=== PATIENT | female | born 1960 | race Caucasian/White ===

== ENCOUNTER → 2023-06-22 12:16 | Outpatient (REF) | payer OTHER, SELFPAY | LOC: HWRAD 12:16 | PROVIDERS: ATTENDING PHYSICIAN Physician Assistant Medical | DX: Z12.31 Encounter for screening mammogram for malignant neoplasm of breast (principal); M81.0 Age-related osteoporosis without current pathological fracture | CPT/HCPCS: 77063; 77067; 77080 ==

== ENCOUNTER → 2023-07-07 19:29 | Outpatient (REF) | payer OTHER, SELFPAY | LOC: MRI 19:29 | PROVIDERS: ATTENDING PHYSICIAN Internal Medicine; FAMILY PHYSICIAN Physician Assistant Medical | DX: C69.32 Malignant neoplasm of left choroid (principal) | CPT/HCPCS: 74183; A9581 ==

== ENCOUNTER → 2023-07-10 06:24 | Day surgery (SDC) | payer OTHER, SELFPAY | LOC: GI 06:24 | PROVIDERS: ATTENDING PHYSICIAN Internal Medicine | DX: Z12.11 Encounter for screening for malignant neoplasm of colon (principal); D12.3 Benign neoplasm of transverse colon; Z86.010 Personal history of colon polyps | CPT/HCPCS: 45385; 88305 ==

== ENCOUNTER → 2023-08-08 11:14 | Outpatient (REF) | payer OTHER, SELFPAY | LOC: RAD 11:14 | PROVIDERS: ATTENDING PHYSICIAN Urology; FAMILY PHYSICIAN Physician Assistant Medical | DX: R31.0 Gross hematuria (principal) | CPT/HCPCS: 74178; Q9967 ==

== ENCOUNTER 2023-08-31 06:23 | Day surgery (SDC) | payer OTHER, SELFPAY ==
[2023-08-23 10:05] VITALS: BMI 19.6
[2023-08-23 10:18] LABS: Urine Albumin Negative (Neg - Trace); Urine Bilirubin Negative (Negative); Urine Character Clear (Clear); Urine Color Yellow; Urine Glucose Negative (Negative); Urine Ketone Negative (Negative); Urine Leukocyte Negative (Negative); Urine Nitrite Negative (Negative); Urine Occult Blood Negative (Negative); Urine Specific Gravity 1.005 (<1.030); Urine Urobilinogen Negative (Neg - 1+)
[2023-08-23 10:24] LABS: Hematocrit 42.7 % (37.0-47.0); Hemoglobin 14.7 g/dL (12.0-16.0); Mean Corp Hgb Conc. 34.4 g/dL (33.0-37.0); Mean Corpuscular Hgb 33.4 pg (27.0-31.0); Mean Platelet Volume 9.8 fL (7.4-10.4); Platelet Count 222 10^3/uL (130-400); Red Cell Dist. Width 11.9 % (11.5-14.5); White Blood Cell Count 5.1 10^3/uL (4.8-10.8)
[2023-08-23 10:30] LABS: PT 13.2 Sec (11.4-14.6)
[2023-08-23 10:31] LABS: APTT 24.7 Sec (23.4-35.0)
[2023-08-23 11:24] LABS: Blood Urea Nitrogen 17 mg/dl (7-17); Calcium 9.3 mg/dl (8.4-10.2); Carbon Dioxide 29 mmol/L (22-30); Chloride 104 mmol/L (98-107); Estimated Creatinine Clearance 73 ml/min; Glucose 90 mg/dl (70-99); Potassium 4.7 mmol/L (3.5-5.1); Sodium 138 mmol/L (135-145); eGFR > 60.00
[2023-08-31] VITALS (12 sets, daily range): BP systolic 124–168; BP diastolic 82–95; BMI 19.6
[2023-08-31] MEDS: CYSVIEW KIT 100 MG INTRAVES (07:59)
[2023-08-31] MEDS: NORMOSOL-R 1000 IV (08:05)
[2023-08-31] MEDS: SYRINGE NON-PUMP 50 MG IRRIG (10:23)
[2023-08-31] MEDS: SYRINGE NON-PUMP 50 ML IRRIG (10:23)
[2023-08-31] MEDS: Pyridium 200 MG PO (10:31)
--- NOTE | 2023-08-31 10:33 | PTCARENOTE ---
Dr. Morales at bedside instilling chemo, walsh catheter elevated, pt. tolerated procedure without difficulty.
--- NOTE | 2023-08-31 11:27 | PTCARENOTE ---
walsh catheter placed to gravity.
== END 2023-08-31 12:30 | disposition home or self-care (01) ==
LOC: SDS 06:23
PROVIDERS: ATTENDING PHYSICIAN Urology; FAMILY PHYSICIAN Physician Assistant Medical; OTHER PHYSICIAN Internal Medicine
DX: C67.9 Malignant neoplasm of bladder, unspecified (principal)
CPT/HCPCS: 52234; C9738; 88307; 36415; 80048; 81003; 85027; 85610; 85730; 93005; A9589; J9201

== ENCOUNTER 2024-01-30 06:53 | Outpatient (RCR) | payer OTHER, MEDICARE, SELFPAY | END 2024-01-30 23:59 | disposition home or self-care (01) | LOC: RPT 06:53 | PROVIDERS: ATTENDING PHYSICIAN Urology | DX: R35.0 Frequency of micturition (principal); M62.89 Other specified disorders of muscle; N39.41 Urge incontinence; R27.8 Other lack of coordination; M62.838 Other muscle spasm; Z73.6 Limitation of activities due to disability | CPT/HCPCS: 97014; 97112; 97140; 97163; 97530 ==

== ENCOUNTER 2024-03-04 16:09 | Outpatient (RCR) | payer OTHER, MEDICARE, SELFPAY | END 2024-03-04 23:59 | disposition home or self-care (01) | LOC: RPT 16:09 | PROVIDERS: ATTENDING PHYSICIAN Urology | DX: R35.0 Frequency of micturition (principal); M62.89 Other specified disorders of muscle; N39.41 Urge incontinence; R27.8 Other lack of coordination; M62.838 Other muscle spasm; Z73.6 Limitation of activities due to disability | CPT/HCPCS: 97110; 97530 ==

== ENCOUNTER → 2024-04-02 18:31 | Outpatient (REF) | payer OTHER, MEDICARE, SELFPAY | LOC: MRI 18:31 | PROVIDERS: ATTENDING PHYSICIAN Internal Medicine; FAMILY PHYSICIAN Family Medicine | DX: C69.32 Malignant neoplasm of left choroid (principal) | CPT/HCPCS: 71046; 74183; A9581 ==

== ENCOUNTER 2024-04-04 06:34 | Outpatient (RCR) | payer OTHER, MEDICARE, SELFPAY | END 2024-04-04 23:59 | disposition home or self-care (01) | LOC: RPT 06:34 | PROVIDERS: ATTENDING PHYSICIAN Urology | DX: R35.0 Frequency of micturition (principal); M62.81 Muscle weakness (generalized); M62.89 Other specified disorders of muscle; N39.41 Urge incontinence; R27.8 Other lack of coordination; M62.838 Other muscle spasm; Z73.6 Limitation of activities due to disability | CPT/HCPCS: 97530 ==

== ENCOUNTER 2024-05-16 06:33 | Outpatient (RCR) | payer OTHER, MEDICARE, SELFPAY | END 2024-05-16 23:59 | disposition home or self-care (01) | LOC: RPT 06:33 | PROVIDERS: ATTENDING PHYSICIAN Urology | DX: R35.0 Frequency of micturition (principal); M62.81 Muscle weakness (generalized); N39.41 Urge incontinence; R27.8 Other lack of coordination; M62.838 Other muscle spasm; Z73.6 Limitation of activities due to disability; M62.89 Other specified disorders of muscle | CPT/HCPCS: 97530 ==

== ENCOUNTER → 2025-01-30 15:09 | Outpatient (REF) | payer OTHER, MEDICARE, SELFPAY | LOC: WDC 15:09 | PROVIDERS: ATTENDING PHYSICIAN Physician Assistant Medical | DX: Z12.31 Encounter for screening mammogram for malignant neoplasm of breast (principal); M81.0 Age-related osteoporosis without current pathological fracture | CPT/HCPCS: 77063; 77067 ==

== ENCOUNTER → 2025-03-20 09:04 | Outpatient (REF) | payer OTHER, MEDICARE, SELFPAY | LOC: RAD 09:04 | PROVIDERS: ATTENDING PHYSICIAN Internal Medicine; FAMILY PHYSICIAN Family Medicine | DX: C69.32 Malignant neoplasm of left choroid (principal) | CPT/HCPCS: 71046 ==

== ENCOUNTER → 2025-03-25 13:41 | Outpatient (REF) | payer OTHER, MEDICARE, SELFPAY | LOC: PAVMRI 13:41 | PROVIDERS: ATTENDING PHYSICIAN Internal Medicine; FAMILY PHYSICIAN Physician Assistant Medical | DX: C69.32 Malignant neoplasm of left choroid (principal) | CPT/HCPCS: 74183; A9581 ==